=== PATIENT | male | born 1960 | race Caucasian/White ===

== ENCOUNTER 2017-09-14 16:34 | Observation (INO) | payer OTHER ==
[~2017-09-14] VITALS: Ht 167.6 cm; Wt 118.5 kg
[~2017-09-14 16:34] MED LIST: ENAL2.5T PO; METO25TA3 PO
[2017-09-14] MEDS ORDERED: ZOLO25TA PO (16:55)
[2017-09-14] MEDS ORDERED: HYDR-3583 (16:57)
[2017-09-14] MEDS ORDERED: SENNOSIDES 8.6 MG TAB PO PRN (17:15)
[2017-09-14] MEDS ORDERED: TEMAZEPAM 15 MG CAP PO PRN (17:15)
[2017-09-14] MEDS ORDERED: NALOXONE HCL 0.4 MG/ML AMP IV PUSH PRN (17:15)
[2017-09-14] MEDS ORDERED: LACTULOSE SYRUP 20 GM/30 ML CUP PO PRN (17:15)
[2017-09-14] MEDS ORDERED: MAGNESIUM HYDROXIDE SUSP 30 ML CUP PO PRN (17:15)
[2017-09-14] MEDS ORDERED: SODIUM CHLORIDE 0.9% FLUSH 10 ML FLUSH IV FLUSH PRN (17:15)
[2017-09-14] MEDS ORDERED: BISACODYL 10 MG SUPP RECTAL PRN (17:15)
[2017-09-14 17:17] VITALS: BP 137/77; PULSE 70; RESP 16; TEMP 97.2; O2SAT 100
[2017-09-14] MEDS ORDERED: ENOXAPARIN SODIUM 40 MG/0.4 ML SYRINGE SQ SCH (18:00)
[2017-09-14] MEDS ORDERED: ACETAMINOPHEN/HYDROcodone 325 MG/10 MG TAB PO PRN (18:00)
--- NOTE | 2017-09-14 18:12 | HHI.HP ---
HPI Service [facility] Hospitalists Primary Care Physician Non-Staff Admission Diagnosis atrial fib,chest pressure Chief Complaint: rapid heart rate ,chest pressure Travel History International Travel<30 Days: No Contact w/Intl Traveler <30 Da: No Traveled to Known Affected Are: No History of Present Illness 57 y/o male with hx of hypertension and told of rapid heart rate based on cath in 2008 and was on enalapril 2.5 a day and metoprolol 25 a day but has been noncompliant with every day taking his medications. Patient presented to ER at [facility] as he woke up at 8 AM felt pressure in chest dizzy and short of breath ,he took his enalapril without any improvement and felt like he was going to pass out. Patient chest pressure was a plus 4 and increased with exertion with radiation to neck and also had rapid heart rate in the 140's.aflutter /fib on ekg was given cardiazem 20mg IV then lopressor 5mg IV and digoxin >25 and converted to normal sinus rhythm at 72. EKG was unremarkable for any ST elevation CK was high but troponin normal D-dimmer normal chest xray normal lab work otherwise normal. Patient transferred to [facility] in stable condition has been pain free since this am. Review of Systems Cardiovascular: COMPLAINS OF: Chest pain, Palpitations, Dyspnea on Exertion Past Family Social History Past Medical History [place] hypertension told of palpitation in past chronic back pain Past Surgical History 3 back surgeries 2000 ,2001 Reported Medications enalapril 2.5,metoprolol 25,hydrocodone sertraline prn Allergies: Coded Allergies: No Known Allergies (Unverified , 09/14/17) Social History smokes occasional no etoh Physical Exam Vital Signs Vital Signs Date Time Temp Pulse Resp B/P (MAP) Pulse Ox O2 Delivery O2 Flow Rate FiO2 09/14/17 17:17 97.2 70 16 137/77 (97) 100 Physical Exam GENERAL: This is a well-nourished, well-developed patient, in no apparent distress. SKIN: No rashes, ecchymoses or lesions. Cool and dry. HEAD: Atraumatic. Normocephalic. No temporal or scalp tenderness. EYES: Pupils equal round and reactive. Extraocular motions intact. No scleral icterus. No injection or drainage. ENT: Nose without bleeding, purulent drainage or septal hematoma. Throat without erythema, tonsillar hypertrophy or exudate. Uvula midline. Airway patent. NECK: Trachea midline. No JVD or lymphadenopathy. Supple, nontender, no meningeal signs. CARDIOVASCULAR: Regular rate and rhythm without murmurs, gallops, or rubs. RESPIRATORY: Clear to auscultation. Breath sounds equal bilaterally. No wheezes , rales, or rhonchi. GASTROINTESTINAL: Abdomen soft, non-tender, nondistended. No hepato-splenomegaly , or palpable masses. No guarding. MUSCULOSKELETAL: Extremities without clubbing, cyanosis, or edema. No joint tenderness, effusion, or edema noted. No calf tenderness. Negative Homans sign bilaterally. NEUROLOGICAL: Awake and alert. Cranial nerves II through XII intact. Motor and sensory grossly within normal limits. Five out of 5 muscle strength in all muscle groups. Normal speech. Laboratory in review from [place] negative Imaging chest xray negative Course as above note in er received diltiazem 20 ,lopressor 5 and digoxin .25 all IV with resolution to symptoms Caprini VTE Risk Assessment Caprini VTE Risk Assessment: Mod/High Risk (score >= 2) Caprini Risk Assessment Model Point Value = 1 Point Value = 2 Point Value = 3 Point Value = 5 Age 41-60 Minor surgery BMI > 25 kg/m2 Swollen legs Varicose veins or History of unexplained or recurrent spontaneous Oral contraceptives or hormone replacement Sepsis (< 1 month) Serious lung disease, including pneumonia (< 1 month) Abnormal pulmonary function Acute myocardial infarction Congestive heart failure (< 1 month) History of inflammatory bowel disease Medical patient at bed rest Age 61-74 Arthroscopic surgery Major open surgery (> 45 min) Laparoscopic surgery (> 45 min) Malignancy Confined to bed (> 72 hours) Immobilizing plaster cast Central venous access Age >= 75 History of VTE Family history of VTE Factor V Leiden Prothrombin [id number] Lupus anticoagulant Anticardiolipin antibodies Elevated serum homocysteine Heparin-induced thrombocytopenia Other congenital or acquired thrombophilia Stroke (< 1 month) Elective arthroplasty Hip, pelvis, or leg fracture Acute spinal cord injury (< 1 month) Prophylaxis Regimen Total Risk Factor Score Risk Level Prophylaxis Regimen 0-1 Low Early ambulation 2 Moderate Order ONE of the following: *Sequential Compression Device (SCD) *Heparin 5000 units SQ BID 3-4 Higher Order ONE of the following medications: *Heparin 5000 units SQ TID *Enoxaparin/Lovenox 40 mg SQ daily (WT < 150 kg, CrCl > 30 mL/min) *Enoxaparin/Lovenox 30 mg SQ daily (WT < 150 kg, CrCl > 10-29 mL/min) *Enoxaparin/Lovenox 30 mg SQ BID (WT < 150 kg, CrCl > 30 mL/min) AND/OR *Sequential Compression Device (SCD) 5 or more Highest Order ONE of the following medications: *Heparin 5000 units SQ TID (Preferred with Epidurals) *Enoxaparin/Lovenox 40 mg SQ daily (WT < 150 kg, CrCl > 30 mL/min) *Enoxaparin/Lovenox 30 mg SQ daily (WT < 150 kg, CrCl > 10-29 mL/min) *Enoxaparin/Lovenox 30 mg SQ BID (WT < 150 kg, CrCl > 30 mL/min) AND *Sequential Compression Device (SCD) Assessment and Plan Problem List: (1) Atrial flutter ICD Codes: I48.92 - Unspecified atrial flutter Plan: converted to NSR will get cardiac consult 2d echo restart metoprolol 25 increase to bid (2) Chest pressure ICD Codes: R07.89 - Other chest pain Status: Acute Plan: resolved may have been related to increase heart rate cardiac consult and recheck enzymes and will get ekg (3) Hypertension ICD Codes: I10 - Essential (primary) hypertension Plan: restart enalapril 2.5 daily Assessment and Plan further plan as per cardiology Code Status full Discussed Condition With patient Physician Certification 2 Midnight Certification Type: Admission for Inpatient Services Order for Inpatient Services The services are ordered in accordance with Medicare regulations or non- Medicare payer requirements, as applicable. In the case of services not specified as inpatient-only, they are appropriately provided as inpatient services in accordance with the 2-midnight benchmark. Estimated LOS (days): 3 3 days is the estimated time the patient will need to remain in the hospital, assuming treatment plan goals are met and no additional complications. Post-Hospital Plan: Home Tru Jalloh MD Sep 14, 2017 18:12
[2017-09-14 20:00] VITALS: BP 130/86; PULSE 79; RESP 18; TEMP 99.3; O2SAT 94
[2017-09-14 21:00] VITALS: PULSE 80
[2017-09-14] MEDS ORDERED: METOPROLOL TARTRATE 25 MG TAB PO SCH (21:00)
[2017-09-14] MEDS: DOCUSATE SODIUM 50 MG/SENNA 8.6 MG TAB PO SCH (21:00)
[2017-09-14 21:06] VITALS: O2SAT 94
[2017-09-14 21:11] LABS: TROPONIN I LESS THAN 0.02 NG/ML (0.02-0.05)
[2017-09-14] MEDS: SODIUM CHLORIDE 0.9% FLUSH 10 ML FLUSH IV FLUSH SCH (21:39)
[2017-09-15] VITALS: BP 108/68; PULSE 67; RESP 18; TEMP 98; O2SAT 97
[2017-09-15 03:31] VITALS: BP 164/71; PULSE 86; RESP 20; TEMP 104.6; O2SAT 95
[2017-09-15 04:00] VITALS: BP 108/60; PULSE 79; RESP 18; TEMP 97.6; O2SAT 92
[2017-09-15 07:20] LABS: TROPONIN I LESS THAN 0.02 NG/ML (0.02-0.05)
--- NOTE | 2017-09-15 07:52 | PD.CONS ---
HPI Consult Requested By Primary Care Physician Non-Staff History of Present Illness 57-year-old male with a past medical history of hypertension and chronic back pain who woke up yesterday with chest pressure, dizziness, and shortness of breath. He presented to the ED and was found to be in atrial flutter with rate 140. He was given IV Cardizem, IV Lopressor, and oral digoxin with conversion to NSR. Symptoms of chest pressure, dizziness, shortness of breath resolved after heart rate was controlled. He denies any further chest pain since that time and denies any chest pain prior to yesterday morning. He reports that he had a cardiac catheterization at [facility] in [place] around 6 years ago that was normal. He denies any prior history of A. fib, heart disease, TIA/ CVA. He feels well at this time with no chest pain, shortness of breath, or palpitations. ([place]) Review of Systems Negative except as stated in the history of present illness ([place]) Past Family Social History Allergies: Coded Allergies: No Known Allergies (Unverified , 09/14/17) Past Medical History Hypertension Chronic back pain Past Surgical History 3 back surgeries Cardiac catheterization that was reportedly normal about 6 years ago Reported Medications Reported Meds & Active Scripts Active Active Ordered Medications Current Medications Medications (Trade) Dose Ordered Sig/Christopher Route Start Time Stop Time Status Last Admin (NS Flush) 2 ml UNSCH PRN IV FLUSH 09/14/17 17:15 (NS Flush) 2 ml BID IV FLUSH 09/14/17 21:00 09/14/17 21:39 (Restoril) 15 mg HS PRN PO 09/14/17 17:15 (Lovenox Inj) 40 mg Q24H SQ 09/14/17 18:00 09/14/17 17:58 (Narcan Inj) 0.4 mg UNSCH PRN IV PUSH 09/14/17 17:15 (Dolores-Colace) 1 tab BID PO 09/14/17 21:00 (Milk Of Magnesia Liq) 30 ml Q12H PRN PO 09/14/17 17:15 (Senokot) 17.2 mg Q12H PRN PO 09/14/17 17:15 (Dulcolax Supp) 10 mg DAILY PRN RECTAL 09/14/17 17:15 (Lactulose Liq) 30 ml DAILY PRN PO 09/14/17 17:15 (Vasotec) 2.5 mg DAILY PO 09/15/17 09:00 Future Hold (Lopressor) 25 mg Q12HR PO 09/14/17 21:00 09/14/17 21:38 ([place] 10-325 Mg) 1 tab Q8HR NEB PRN PO 09/14/17 18:00 09/14/17 18:17 (Pneumovax-23 Inj) 25 mcg ONCE ONCE IM 09/15/17 10:00 09/15/17 10:01 Family History Denies any family history of heart disease Social History Occasional tobacco use ([place]) Physical Exam Vital Signs Vital Signs Date Time Temp Pulse Resp B/P (MAP) Pulse Ox O2 Delivery O2 Flow Rate FiO2 09/15/17 04:00 97.6 79 18 108/60 (76) 92 09/15/17 00:00 98.0 67 18 108/68 (81) 97 09/14/17 21:06 94 21 09/14/17 21:00 80 09/14/17 20:00 99.3 79 18 130/86 (101) 94 09/14/17 17:17 97.2 70 16 137/77 (97) 100 Physical Exam GENERAL: Well-developed well-nourished. In no acute distress. NECK: No carotid bruits. No JVD. CARDIOVASCULAR: Regular rate and rhythm. No murmur appreciated. RESPIRATORY: No accessory muscle use. Clear to auscultation. Breath sounds equal bilaterally. MUSCULOSKELETAL: No clubbing or cyanosis. No edema. NEUROLOGICAL: Awake and alert. Normal speech. Laboratory Laboratory Tests Test 09/14/17 20:40 09/15/17 06:30 Total Creatine Kinase 1346 967 Creatine Kinase MB 10.8 7.2 Creatine Kinase MB % 0.8 0.7 Troponin I LESS THAN 0.02 LESS THAN 0.02 ([place]) Assessment and Plan Assessment and Plan 57-year-old male with a past medical history of hypertension who presented for new onset atrial fibrillation/flutter with RVR New-onset A. fib/flutter: Converted back to NSR with medication in the ED and has remained NSR overnight. Chadsvasc 1 for hypertension, start aspirin. Hold enalapril and increase metoprolol to 50 mg twice a day for rate control. We would recommend no further inpatient workup at this time with outpatient follow-up for echocardiogram and possible stress test. Patient is agreeable with this plan. Discussed Condition With Patient, RN, Dr. Andre ([place]) [place] Sep 15, 2017 07:51 Patel Andre MD Sep 15, 2017 08:38
[2017-09-15 08:00] VITALS: BP 126/81; PULSE 70; RESP 16; TEMP 97.9; O2SAT 94
[2017-09-15] MEDS ORDERED: METOPROLOL TARTRATE 50 MG TAB PO SCH (09:00)
[2017-09-15] MEDS ORDERED: ASPIRIN EC 81 MG TABEC PO SCH (09:00)
[2017-09-15] MEDS ORDERED: ENALAPRIL MALEATE 2.5 MG TAB PO SCH (09:00)
[2017-09-15] MEDS: SODIUM CHLORIDE 0.9% FLUSH 10 ML FLUSH IV FLUSH SCH (09:41)
[2017-09-15] MEDS: DOCUSATE SODIUM 50 MG/SENNA 8.6 MG TAB PO SCH (09:41)
[2017-09-15] MEDS ORDERED: PNEUMOCOCCAL POLYVALENT INJ 25 MCG/0.5 ML SYR IM ONE (10:00)
[2017-09-15] MEDS ORDERED: METO-309 PO (10:07)
[2017-09-15] MEDS ORDERED: ECASA81 PO (10:07)
--- NOTE | 2017-09-15 10:08 | HHI.DS ---
Discharge Summary Admission Date Sep 14, 2017 at 16:35 Admitting Diagnosis atrial fib,chest pressure (1) Atrial flutter Diagnosis: Principal ICD Codes: I48.92 - Unspecified atrial flutter (2) Chest pressure Diagnosis: Principal ICD Codes: R07.89 - Other chest pain Status: Acute (3) Hypertension Diagnosis: Secondary ICD Codes: I10 - Essential (primary) hypertension Consultants cardiology Brief History 57 y/o male with hx of hypertension and told of rapid heart rate based on cath in 2008 and was on enalapril 2.5 a day and metoprolol 25 a day but has been noncompliant with every day taking his medications. Patient presented to ER at [facility] as he woke up at 8 AM felt pressure in chest dizzy and short of breath ,he took his enalapril without any improvement and felt like he was going to pass out. Patient chest pressure was a plus 4 and increased with exertion with radiation to neck and also had rapid heart rate in the 140's.aflutter /fib on ekg was given cardiazem 20mg IV then lopressor 5mg IV and digoxin >25 and converted to normal sinus rhythm at 72. EKG was unremarkable for any ST elevation CK was high but troponin normal D-dimmer normal chest xray normal lab work otherwise normal. [facility] condition has been pain free since this am. Significant Findings Laboratory Tests Test 09/14/17 20:40 09/15/17 06:30 Total Creatine Kinase 1346 U/L (39-308) 967 U/L (39-308) Creatine Kinase MB 10.8 NG/ML (0.5-3.6) 7.2 NG/ML (0.5-3.6) Troponin I LESS THAN 0.02 NG/ML LESS THAN 0.02 NG/ML PE at Discharge GENERAL: SKIN: Warm and dry. HEAD: Atraumatic. Normocephalic. EYES: Pupils equal and round. No scleral icterus. No injection or drainage. ENT: No nasal bleeding or discharge. Mucous membranes pink and moist. NECK: Trachea midline. No JVD. CARDIOVASCULAR: Regular rate and rhythm. RESPIRATORY: No accessory muscle use. Clear to auscultation. Breath sounds equal bilaterally. GASTROINTESTINAL: Abdomen soft, non-tender, nondistended. Hepatic and splenic margins not palpable. MUSCULOSKELETAL: Extremities without clubbing, cyanosis, or edema. No obvious deformities. NEUROLOGICAL: Awake and alert. No obvious cranial nerve deficits. Motor grossly within normal limits. Five out of 5 muscle strength in the arms and legs. Normal speech. PSYCHIATRIC: Appropriate mood and affect; insight and judgment normal. Hospital Course Patient transferred from [place] with atrial flutter treated in [place] with one dose IV cardiazem,IV digoxin and one dose lopressor converted to sinus ,sis have chest pressure which resolved and has been in NSR i ordered 2d echo labs were stable negative troponin did have elevated cpk which is coming down . Patient was supposed to be on metoprolol but was not taking it and was on enalapril and not taking it . We restarted medication and will follow up with PCP and discharge on asa 81 and metoprolol 50 bid and stop enalapril. Stress test as outpatient. Pt Condition on Discharge: Good Discharge Disposition: Discharge Home Discharge Instructions DIET: Follow Instructions for: Heart Healthy Diet Activities you can perform: Regular-No Restrictions New Medications: Aspirin DR (Aspirin DR) 81 Mg Tabdr 81 MG PO DAILY for Chest Pain MDD 81 for 30 Days, #30 TAB Metoprolol Tartrate (Lopressor) 50 Mg Tab 50 MG PO Q12HR for hypertension MDD 100 for 30 Days, #60 TAB Additional Information f/u pcp 1 week and cardiology Tru Jalloh MD Sep 15, 2017 10:08
--- NOTE | 2017-09-15 18:43 | ECHRPT ---
Indication: CHEST PAIN CONCLUSIONS Normal left ventricular size. Mild concentric left ventricular hypertrophy. The left ventricular systolic function is low normal with an estimated ejection fraction in the rang e of 50- 55%. Mild left ventricular hypertrophy. The left atrial size is dryk-of-huqlqkkddx dilated. The right atrial size is mildly dilated. BP: 108 / 60 HR: 79 Rhythm: Sinus MEASUREMENTS (Male / Female) Normal Values Technical Quality:Fair 2D ECHO LV Diastolic Diameter PLAX 4.5 cm 4.2 - 5.9 / 3.9 - 5.3 cm LV Systolic Diameter PLAX 3.5 cm IVS Diastolic Thickness 1.2 cm 0.6 - 1.0 / 0.6 - 0.9 cm LVPW Diastolic Thickness 1.2 cm 0.6 - 1.0 / 0.6 - 0.9 cm LV Relative Wall Thickness 0.5 RV Internal Dim ED PLAX 3.0 cm LVOT Diameter 2.4 cm Aortic Root Diameter 3.5 cm LA Systolic Diameter LX 3.8 cm 3.0 - 4.0 / 2.7 - 3.8 cm M-MODE AV Cusp Separation MM 2.5 cm DOPPLER AV Peak Velocity 142.0 cm/s AV Peak Gradient 8.1 mmHg AV Mean Gradient 4.0 mmHg AV Velocity Time Integral 24.5 cm LVOT Peak Velocity 114.0 cm/s LVOT Peak Gradient 5.2 mmHg LVOT Velocity Time Integral 21.4 cm AV Area Cont Eq vti 4.0 cm AV Area Cont Eq pk 3.6 cm Mitral E Point Velocity 75.0 cm/s Mitral A Point Velocity 65.6 cm/s Mitral E to A Ratio 1.1 LV E' Lateral Velocity 8.9 cm/s Mitral E to LV E' Lateral Ratio 8.5 LV E' Septal Velocity 7.5 cm/s Mitral E to LV E' Septal Ratio 10.0 PV Peak Velocity 47.4 cm/s PV Peak Gradient 0.9 mmHg FINDINGS LEFT VENTRICLE Normal left ventricular size. Mild concentric left ventricular hypertrophy. The left ventricular systolic function is low normal with an estimated ejection fraction in the rang e of 50- 55%. RIGHT VENTRICLE Normal right ventricular size and systolic function. LEFT ATRIUM The left atrial size is beih-lc-axhdbevusu dilated. RIGHT ATRIUM The right atrial size is mildly dilated. ATRIAL SEPTUM No atrial level shunt is demonstrated by color flow Doppler interrogation. AORTA The aortic root and proximal ascending aorta are normal in size on limited imaging. MITRAL VALVE trace mitral valve regurgitation. AORTIC VALVE Trileaflet aortic valve. No aortic valve stenosis or regurgitation. TRICUSPID VALVE Structurally normal tricuspid valve. No tricuspid valve stenosis or regurgitation. PULMONARY VALVE Trivial pulmonary valve regurgitation. VESSELS The inferior vena cava was not well visualized. PERICARDIUM No pericardial effusion. Donte Louis MD, FACC (Electronically Signed) Final Date:15 September 2017 18:42
--- NOTE | 2017-09-15 23:04 | EKG ---
Date Performed: 09/15/2017 Time Performed: 05:36:35 PTAGE: 57 years EKG: Sinus rhythm NONSPECIFIC T-WAVE ABNORMALITY ABNORMAL ECG PREVIOUS TRACING : 09/14/2017 17.27 Since the previous tracing, no significant change noted DOCTOR: Jayden Mora Interpretating Date/Time 09/15/2017 23:04:33
--- NOTE | 2017-09-15 23:38 | EKG ---
Date Performed: 09/14/2017 Time Performed: 17:27:50 PTAGE: 57 years EKG: Sinus rhythm NONSPECIFIC T-WAVE ABNORMALITY BORDERLINE ECG NO PREVIOUS TRACING DOCTOR: Jayden Mora Interpretating Date/Time 09/15/2017 23:36:22
== END 2017-09-15 12:30 | disposition home or self-care (01) ==
LOC: PHEDDLT 16:34 → PH3B 16:35 → INTOOBSV 16:35
PROVIDERS: ADMIT Family Medicine; ATTEND Family Medicine
DX: I48.92 Unspecified atrial flutter (principal); Z23 Encounter for immunization; R07.89 Other chest pain; Z91.19 Patient's noncompliance with other medical treatment and regimen; I10 Essential (primary) hypertension; R42 Dizziness and giddiness; R06.02 Shortness of breath; M54.9 Dorsalgia, unspecified; G89.29 Other chronic pain; F17.210 Nicotine dependence, cigarettes, uncomplicated; R94.31 Abnormal electrocardiogram [ECG] [EKG]
CPT/HCPCS: 71046; 80048; 82550; 82552; 83735; 83880; 84484; 85025; 85379; 85610; 85730; 90732; 93005; 93306; 96361; 96374; 96375; 99291; G0009; J1650; J7030; 90471